=== PATIENT | male | born 1940 | race Two or more races ===

== ENCOUNTER 2016-12-21 13:11 | Inpatient (IN) | payer MEDICAID, OTHER ==
--- NOTE | 2016-12-21 14:07 | EDPHY ---
H & P Time Seen by Provider: 12/21/16 14:04 HPI/ROS: Chief complaint. Chest pain HPI. 76-year-old man with known history coronary artery disease presents with 2 day history of chest pain shortness of breath. Some cough. Vomiting this morning. No fever. His chest discomfort and shortness of breath or worse with exertion. He returned from a visit [place] 1 week ago. No leg swelling or pain. Pain is in the central part of his chest and described as pressure. No radiation. At triage patient's oxygen saturation on room air was 69% ROS Constitutional. no fever/chills, no weakness Eyes. no problems with vision ENT. no sore throat, no nasal drainage Cardiovascular. Chest pain Respiratory. Shortness of breath Abdominal. no abdominal pain, no nausea/vomiting, no diarrhea . no problems urinating MS. no calf pain/swelling, no neck/back pain, no joint pain Skin. no rash Lymph. no swollen glands Neuro. no headache, no dizziness, no difficulty walking or with speech Past Medical/Surgical History: Past medical history coronary artery disease and AK with angioplasty, hypertension, dyslipidemia Social History: , nonsmoker, no alcohol Smoking Status: Never smoked Physical Exam: General Appearance: Alert well-developed male moderate distress vital signs show the patient be afebrile. O2 saturation 69% on room air Eyes: Pupils equal and round no pallor or injection. ENT, Mouth: Mucous membranes are moist. Respiratory: There are no retractions, lungs are clear to auscultation. Cardiovascular: Regular rate and rhythm. Gastrointestinal: Abdomen is soft and nontender, no masses, bowel sounds normal. Neurological: Awake and alert, sensory and motor exams grossly normal. Skin: Warm and dry, no rashes. Musculoskeletal: Neck is supple nontender. Extremities symmetrical, full range of motion. Psychiatric: Patient is oriented X 3, there is no agitation. Constitutional: Initial Vital Signs Temperature (C) 36.5 C 12/21/16 13:48 Heart Rate 93 12/21/16 13:48 Respiratory Rate 16 12/21/16 13:48 Blood Pressure 108/68 12/21/16 13:48 O2 Sat (%) 69 L 12/21/16 13:48 O2 Delivery Mode Oxymask O2 (L/minute) 11 Allergies/Adverse Reactions: No Known Allergies Allergy (Unverified 03/12/16 22:22) Home Medications: Medication Instructions Recorded Allopurinol [Allopurinol 100 MG 100 mg PO DAILY 10/20/15 (*)] Ascard (Acetylsalicylic Acid) 75mg 75 mg PO DAILY 10/20/15 Atenolol [Tenormin 25 mg (*)] 25 mg PO DAILY 10/20/15 Ramipril [Altace 2.5mg (*)] 2.5 mg PO HS 10/20/15 Rosuvastatin Calcium [Crestor] 10 mg PO HS 10/20/15 Nitroglycerin [Nitrostat 0.4 mg 0.4 mg SL Q5M PRN #1 bottle 10/21/15 (RX)] Medical Decision Making - Diagnostics EKG Interpretation: EKG interpreted by me shows normal sinus rhythm with normal interval.. Normal axis. Possible old inferior AK. T-wave inversion leads V3 through V6. No significant ST elevation or depression. There is also inferior T-wave inversion. There is no arrhythmia. The heart rate is 82. The T-wave inversions are new and different from previous EKG from October 2015 Imaging Results: Imaging Impressions Chest X-Ray 12/21/16 14:12 Impression: Interval progression in diffuse interstitial thickening throughout both lungs, progressive interstitial lung disease versus possible superimposed bilateral pulmonary infiltrates.. Chest/Thorax CTA 12/21/16 14:57 Impression: 1. No evidence of pulmonary embolus using CT protocol. 2. Arteriosclerotic calcifications and probably some stents associated with the coronary arteries. 3. Moderate honeycomb pattern once again seen involving the lung parenchyma peripherally as detailed above with increased superimposed groundglass attenuation compatible with early pneumonia or pneumonitis throughout the right lung and involving the left lower lobe. This also can be seen with fluid overload/CHF. Findings discussed with Dean Murray M.D. at 16:07 hour, 12/21/2016. Chest CT reviewed by me and discussed with Dr. Casarez shows possible pneumonia on the right side and left lower lobe. Progression of interstitial fibrosis. No PE Procedures: IV normal saline, monitor, supplemental oxygen Aspirin in the ED nitroglycerin sublingually for continuing chest discomfort blood cultures and septic workup ED Course/Re-evaluation: Phone conversation at 3:[address] Dumont, cardiology, who will see the patient in the ED I have spoken again with Dr. Dumont following his consultation and evaluation of the patient. The patient, the family and I discussed EKG, imaging, lab results. We discussed treatment plan including recommendation for admission. They expressed understanding and agreement I discussed the case with patient's daughter who is a home care assistant at [facility]. I have consulted and discussed the case with Dr. scot Ivan, hospitalist, who agrees to the admission Differential Diagnosis: Certainly the patient is hypoxic and has extensive interstitial lung disease that appears to be progressive. I considered pulmonary embolus. Possibly the patient has pneumonia. He does not have a pulmonary embolus. He has an elevated troponin and EKG changes so I have also considered acute coronary syndrome - Data Points Laboratory Results: Laboratory Results 12/21/16 14:19 12/21/16 14:19 12/21/16 12/21/16 12/21/16 14:19 14:19 14:19 WBC RBC Hgb Hct MCV MCH MCHC RDW Plt Count MPV Neut % (Auto) Lymph % (Auto) [place] % (Auto) Eos % (Auto) Baso % (Auto) Nucleat RBC Rel Count Absolute Neuts (auto) Absolute Lymphs (auto) Absolute Monos (auto) Absolute Eos (auto) Absolute Basos (auto) Absolute Nucleated RBC Immature Gran % Immature Gran # PT 16.5 SEC H SEC (12.0-15.0) INR 1.33 H (0.83-1.16) APTT 26.0 SEC SEC (23.0-38.0) D-Dimer 8.83 ug/mLFEU H ug/mLFEU (0.00-0.50) Sodium 142 mEq/L mEq/L (134-144) Potassium 5.8 mEq/L H mEq/L (3.5-5.2) Chloride 107 mEq/L mEq/L (97-110) Carbon Dioxide 24 mEq/l mEq/l (22-31) Anion Gap 11 mEq/L mEq/L (8-16) BUN 42 mg/dL H mg/dL (7-23) Creatinine 1.6 mg/dL H mg/dL (0.7-1.3) Estimated GFR 42 Glucose 182 mg/dL H mg/dL (70-100) Calcium 9.0 mg/dL mg/dL (8.5-10.4) Total Bilirubin 0.7 mg/dL mg/dL (0.1-1.4) Troponin I 0.227 ng/mL H ng/mL (0-0.034) NT-Pro-B Natriuret Pep 53433 pg/mL H pg/mL (0-450) Lipase 125.0 IU/L IU/L (23-300) 12/21/16 14:19 WBC 11.11 10^3/uL H 10^3/uL (3.80-9.50) RBC 4.97 10^6/uL 10^6/uL (4.40-6.38) Hgb 13.6 g/dL L g/dL (13.7-17.5) Hct 43.3 % % (40.0-51.0) MCV 87.1 fL fL (81.5-99.8) MCH 27.4 pg L pg (27.9-34.1) MCHC 31.4 g/dL L g/dL (32.4-36.7) RDW 14.7 % % (11.5-15.2) Plt Count 246 10^3/uL 10^3/uL (150-400) MPV 13.7 fL H fL (8.7-11.7) Neut % (Auto) 89.1 % H % (39.3-74.2) Lymph % (Auto) 5.1 % L % (15.0-45.0) [place] % (Auto) 5.0 % % (4.5-13.0) Eos % (Auto) 0.1 % L % (0.6-7.6) Baso % (Auto) 0.1 % L % (0.3-1.7) Nucleat RBC Rel Count 0.0 % % (0.0-0.2) Absolute Neuts (auto) 9.89 10^3/uL H 10^3/uL (1.70-6.50) Absolute Lymphs (auto) 0.57 10^3/uL L 10^3/uL (1.00-3.00) Absolute Monos (auto) 0.56 10^3/uL 10^3/uL (0.30-0.80) Absolute Eos (auto) 0.01 10^3/uL L 10^3/uL (0.03-0.40) Absolute Basos (auto) 0.01 10^3/uL L 10^3/uL (0.02-0.10) Absolute Nucleated RBC 0.00 10^3/uL 10^3/uL (0-0.01) Immature Gran % 0.6 % % (0.0-1.1) Immature Gran # 0.07 10^3/uL 10^3/uL (0.00-0.10) PT INR APTT D-Dimer Sodium Potassium Chloride Carbon Dioxide Anion Gap BUN Creatinine Estimated GFR Glucose Calcium Total Bilirubin Troponin I NT-Pro-B Natriuret Pep Lipase Medications Given: Discontinued Medications Aspirin (Aspirin) 324 mg PO EDNOW ONE Stop: 12/21/16 14:25 Last Admin: 12/21/16 14:24 Dose: 324 mg Sodium Chloride (Ns) 1,000 mls @ 0 mls/hr IV ONCE ONE PRN Reason: Wide Open Stop: 12/21/16 14:35 Last Admin: 12/21/16 14:57 Dose: 1,000 mls Departure - Departure Disposition: [facility] Acute Clinical Impression: Acute coronary syndrome Congestive heart failure Qualifiers: Congestive heart failure type: systolic Congestive heart failure chronicity: chronic Qualified Code(s): I50.22 - Chronic systolic (congestive) heart failure Condition: Fair Referrals: Brynn Ahumada MD [Primary Care Provider] - As per Instructions
[2016-12-21] MEDS ORDERED: ASPIRIN 81 MG CHEWABLE TAB ONE (14:12)
[2016-12-21] MEDS ORDERED: ASPIRIN 81 MG CHEWABLE TAB PO ONE (14:24)
[2016-12-21 14:25] LABS: % IMMATURE GRANULYOCYTES 0.6 % (0.0-1.1); ABSOLUTE IMMATURE GRANULOCYTES 0.07 10^3/uL (0.00-0.10); ADD DIFF? NO; ADD MORPH? NO; ADD SCAN? NO; ATYPICAL LYMPHOCYTE FLAG 0 (0-99); FRAGMENT RBC FLAG 20 (0-99); HEMATOCRIT 43.3 % (40.0-51.0); HEMOGLOBIN 13.6 g/dL (13.7-17.5); LEFT SHIFT FLG 20 (0-99); LIPEMIA HEMOLYSIS FLAG 80 (0-99); MEAN CELL HEMOGLOBIN 27.4 pg (27.9-34.1); MEAN CELL HEMOGLOBIN CONCENTR. 31.4 g/dL (32.4-36.7); MEAN CELL VOLUME 87.1 fL (81.5-99.8); MEAN PLATELET VOLUME 13.7 fL (8.7-11.7); PLATELET CLUMPS FLAG 10 (0-99); PLATELET COUNT 246 10^3/uL (150-400); RED BLOOD CELL COUNT 4.97 10^6/uL (4.40-6.38); RED CELL DISTRIBUTION WIDTH 14.7 % (11.5-15.2)
[2016-12-21] MEDS ORDERED: NITROGLYCERIN 0.4 MG BTL SL PRN ×2 (14:25→14:34)
[2016-12-21 14:34] LABS: INR 1.33 (0.83-1.16); PROTIME(PATIENT) 16.5 SEC (12.0-15.0)
[2016-12-21] MEDS ORDERED: NS 1,000 ML IV ONE (14:34)
[2016-12-21 14:45] LABS: ANION GAP 11 mEq/L (8-16); CARBON DIOXIDE 24 mEq/l (22-31); CHLORIDE 107 mEq/L (97-110); CREATININE 1.6 mg/dL (0.7-1.3); GLOMERULAR FILTRATION RATE 42; GLUCOSE 182 mg/dL (70-100); POTASSIUM 5.8 mEq/L (3.5-5.2); SODIUM 142 mEq/L (134-144)
[2016-12-21 14:56] LABS: TROPONIN I 0.227 ng/mL (0-0.034)
[2016-12-21] MEDS ORDERED: IOPAMIDOL (ISOVUE 370) 100 ML BTL IV ONE ×2 (15:01→15:16)
--- NOTE | 2016-12-21 16:12 | CPEKG ---
Heart Rate: 82 RR Interval: 732 P-R Interval: 132 QRSD Interval: 94 QT Interval: 408 QTC Interval: 477 P [place]: 24 QRS [place]: 49 T Wave [place]: -76 EKG Severity - ABNORMAL ECG - EKG Impression: SINUS RHYTHM EKG Impression: PROBABLE LEFT ATRIAL ABNORMALITY EKG Impression: ABNORMAL T, CONSIDER ISCHEMIA, ANT-LAT LEADS EKG Impression: BORDERLINE PROLONGED QT INTERVAL Electronically Signed By: Dean Murray 21-Dec-2016 17:15:39
--- NOTE | 2016-12-21 16:32 | PDCONSULT ---
[employer] Note: CARDIOLOGY CONSULTATION CC: shortness of breath REASON FOR CONSULTATION: Concomitant chest pains HPI: Patient is a 76 y/o male with history of CAD s/p POBA (1994) to the RCA, HLP, HTN, and "interstitial lung disease", who presented to [facility] ER with complaints of shortness of breath and chest tightness. According to the patient, he was doing well three days prior. Symptoms began somewhat acutely, about two days ago. Patient with recent travel from [place] (about one week ago). Chest pains were noted, and localize to the substernal region. No jessica radiation of the discomfort into the shoulder, neck, or jaw has been noted. Emesis was reported today (per ER notes). No PND or orthopnea have been noted. No lower extremity swelling. No fevers or chills have been noted, but the patient does have a slightly productive cough. Compliance with medical therapy has been good. Patient's daughter is a pile driver operator at [employer], and I spoke with her after seeing the patient. Given the travel history and the shortness of breath and a D-dimer of 8.83, the patient had a CT scan to rule out pulmonary emboli. No obvious PE was noted, but extensive lung pathology noted ( infiltrate with scarring and fibrosis). Saturations initially noted were 69% on room air. A non rebreather was started, and shortness of breath improved. ECG with new T wave inversions to the lateral leads (this was not noted on prior ECG from fall). Troponin was elevated to 0.23 with creatinine of 1.6 (pre CT of chest). BNP was also noted to be elevated to 11,600. At present, the patient was comfortable and without complaints of chest pain or pressure. Remainder of the 12 point review of systems was unremarkable. No reports of weight loss. No blood to sputum. (+) cough, (+) dyspnea, (+) chest pain, (+) anorexia PMHx: (1) CAD s/p POBA to RCA in 1994 (2) HTN (3) HLP (4) Interstitial Lung Disease (5) No DM history PSHx: non contributory FHx: non contributory NKDA Medications (1) Crestor (10 mg per day) (2) ASA (3) Ramipril (2.5 mg per day) (4) Atenolol (25 mg per day) (5) Allopurinol (6) Ascard Social Hx: , non smoker, non drinker daughter is pile driver operator at [employer] Vitals: 36.5 93 bpm 16 breaths/min 108/68 mm Hg 69% sats on room air 0/10 chest pain GEN: awake and alert in mild distress given degree of shortness of breath noted SKIN: no rash or edema noted HEENT: NCAT with PERRLA (cataracts). No JVD appreciated LUNGS: Diffusely diminished breath sounds. Crackles to the bases. No wheeze. No overt "dullness" noted COR: RRR without rubs, gallops. No appreciable murmur noted (some of this lost to auscultation given breath sounds GI: soft, NABS EXT: no c/c/e, 2+ DP/PT/RAD Patient was awake, alert, and answered questions appropriately Labs all reviewed: Notables: Trop 0.23 BNP: 30453 Cr: 1.6 K: 5.8 DDimer: 8.83 Mild WBC elevation was noted with leftward shift ECG: normal sinus rhythm with new T wave inversions to the lateral leads. No jessica ST elevation was noted Echocardiogram (at bedside) with low normal LVEF (40-45%) CT of chest without overt evidence of PE. There was diffuse interstitial lung disease noted. Uncertain if there is underlying pneumonia given the severity of the lung disease Stress testing from 2016 with "...large inferolateral infarct with mild borderzone reversibility..." EF at that time was 45%. ASSESSMENT: Blood cultures are pending from the ER Likely start to broad spectrum ABx Serial cardiac enzymes and ECGs Patient appears "dry", and IV hydration is needed (there are multiple labs suggestive of dehydration) We can not (or should not) take the patient urgently to the engineering laboratory technician with (a) Creatine of 1.[address] with contrast and (b) no actively dynamic ECG changes With hydration overnight, we can reassess renal function in the morning to determine if angiogram is feasible study to safely perform in this patient. I spoke with the patient's daughter who was in agreement with these plans. Should there be an overt decompensation and/or dynamic ECG changes noted, we would alter plans and urgently take the patient to the cardiac engineering laboratory technician, but at this point, would obtain further information. Patient was also in agreement with these plans.
[2016-12-21 16:36] LABS: BILIRUBIN,TOTAL 0.7 mg/dL (0.1-1.4)
[2016-12-21] MEDS ORDERED: NS 500 ML IV ONE (17:26)
[2016-12-21] MEDS ORDERED: ONDANSETRON 4 MG/2 ML VIAL IVP PRN (17:26)
[2016-12-21] MEDS ORDERED: ONDANSETRON DISINTEGRATING 4 MG TAB PO PRN (17:26)
[2016-12-21] MEDS: AZITHROMYCIN IV 500 MG in D5W 250 ML IV SCH (19:13)
[2016-12-21 21:28] LABS: COLOR YELLOW; LEUKOCYTE ESTERASE,URINE NEGATIVE (NEGATIVE); NITRITE,URINE NEGATIVE (NEGATIVE)
[2016-12-21] MEDS: guaiFENesin 600 MG TAB.ER PO SCH (21:28)
[2016-12-21] MEDS: HEPARIN 5,000 UNIT/0.5 ML SYR SC SCH (21:28)
[2016-12-21 21:31] LABS: MUCUS TRACE /lpf (NONE-1+)
--- NOTE | 2016-12-21 21:50 | GHP ---
[f rep st] HISTORY AND PHYSICAL DATE OF ADMISSION: 12/21/2016 CHIEF COMPLAINT: Weakness, shortness of breath. HISTORY OF PRESENT ILLNESS: This is a 76-year-old male, with a history of coronary artery disease, interstitial lung disease, hypertension, who presents after a recent trip to [facility] with complaint s of worsening shortness of breath and cough. The patient reports prior to his trip feeling in his normal state of health, taking his daily walks without complication, then post returning from his tr ip, developing severe shortness of breath and weakness. The patient does note a cough productive of blood-tinged sputum. Denies any noticeable fevers or chills. Denies nausea, abdominal pain. Dangelo es chest pain. Denies lower extremity edema, diarrhea or dysuria. PAST MEDICAL HISTORY: 1. Coronary artery disease. 2. Hypertension. 3. Interstitial lung disease, diagnosed on his last hospitalization. Has been seen by a pulmonolog ist in [place] since his discharge without initiation of therapy. 4. Gout. SOCIAL HISTORY: Negative for tobacco, alcohol or illicit drugs. FAMILY HISTORY: Negative for known heart disease. REVIEW OF SYSTEMS: A 10-point review of systems is negative, besides that outlined in the HPI. PHYSICAL EXAMINATION: VITAL SIGNS: Blood pressure is 125/88, heart rate 70, respiratory rate 20, 9 9% on 4 L, 36.5. GENERAL: This is a healthy-appearing, thin, elderly male in no acute distress. H EENT: Notable for dry mucous membranes. Eye exam is negative for any icterus. CARDIAC: Patient i s regular rate and rhythm. A systolic murmur is appreciated. PULMONARY: No rhonchi or wheezing is noted. Fine crackle at bilateral bases. GASTROINTESTINAL: Positive bowel sounds. ABDOMEN: Soft and nontender. MUSCULOSKELETAL: Negative for any lower extremity edema. SKIN: Exam is negative for any rashes. NEUROLOGIC: He is alert and oriented x3. PSYCHIATRIC: He is pleasant and coopera tive on interview and examination. LABORATORY DATA: CT of the chest, which I personally reviewed and interpreted, shows interstitial l paige disease, honeycombing pattern. There appears to be increased attenuation at the right lung and left lower lobe suspicious for pneumonia. EKG, which I personally reviewed and interpreted, shows sinus rhythm, normal axis, normal intervals, with T-wave inversions V3 through V5, which are new from previous. White count is 11, hematocrit 43. D-dimer is 8.8. Creatinine 1.6, baseline closer to 1.2. Troponi n 0.227. BNP 11,600. ASSESSMENT AND PLAN: This is a 76-year-old male presenting with shortness of breath. 1. Acute hypoxic respiratory failure concerning for multiple etiologies, including progressive inte rstitial lung disease and underlying pneumonia, and possible cardiac dysfunction. Will initiate arlene atment for pneumonia at this time. Carefully fluid resuscitate in preparation for cardiac catheteri zation. Bedside echocardiography did not show acute wall motion abnormalities, per Cardiology, or c oncerning changes in his ejection fraction, which was in the high 40s last visualized. 2. Interstitial lung disease. It does appear that this has progressed since his last imaging study at [facility]. I have asked Dr. Odell from Pulmonary to consult in the morning to help assist with any recommendations related to treatment of his ILD or the suspected underlying pne umonia. 3. Indeterminate troponin. With patient's known history of coronary artery disease and concurrent T-wave inversion, certainly concerning for evolving ischemia. We will recheck troponins this evenin g. We will make the patient n.p.o. for a possible cardiac catheterization in the morning if his oskar al function improves. Cardiology has evaluated the patient, and we will follow along closely. It i s also possible that the patient's troponin is mildly elevated in the setting of acute kidney dysfun ction. We will follow with hydration. 4. Acute kidney injury, secondary to volume depletion. Patient has had very limited oral intake in the preceding days, and appears dry on examination. We will fluid resuscitate this evening, and re check his renal function in the morning. We will hold his ramipril, in the setting of acute kidney injury and concurrent contrast administration. 5. Suspected acute community-acquired pneumonia. We will initiate azithromycin and ceftriaxone. B lood cultures have been obtained from the emergency department. We will follow his microbiology. 6. Prophylaxis with heparin subcutaneous. 7. Diet: Cardiac, then n.p.o. after midnight for possible catheterization. 8. Disposition. I am expecting greater than 2 midnights, as patient is presenting with multiple co mplaints, including hypoxia, kidney injury, and abnormal troponins. I have discussed the case with Dr. Dumont, as well as the emergency room. Patient will be triaged to the PCU. /[id number]/MODL
[2016-12-22] MEDS: NS 1,000 ML IV SCH ×2 (01:47→09:07)
[2016-12-22 04:04] LABS: % IMMATURE GRANULYOCYTES 0.2 % (0.0-1.1); ABSOLUTE IMMATURE GRANULOCYTES 0.02 10^3/uL (0.00-0.10); ADD DIFF? NO; ADD MORPH? NO; ADD SCAN? NO; ATYPICAL LYMPHOCYTE FLAG 0 (0-99); FRAGMENT RBC FLAG 20 (0-99); HEMATOCRIT 36.2 % (40.0-51.0); HEMOGLOBIN 11.2 g/dL (13.7-17.5); LEFT SHIFT FLG 10 (0-99); LIPEMIA HEMOLYSIS FLAG 80 (0-99); MEAN CELL HEMOGLOBIN 27.4 pg (27.9-34.1); MEAN CELL HEMOGLOBIN CONCENTR. 30.9 g/dL (32.4-36.7); MEAN CELL VOLUME 88.5 fL (81.5-99.8); MEAN PLATELET VOLUME 14.6 fL (8.7-11.7); PLATELET CLUMPS FLAG 30 (0-99); PLATELET COUNT 193 10^3/uL (150-400); RED BLOOD CELL COUNT 4.09 10^6/uL (4.40-6.38); RED CELL DISTRIBUTION WIDTH 14.6 % (11.5-15.2)
[2016-12-22 04:33] LABS: ANION GAP 8 mEq/L (8-16); CALCIUM 8.1 mg/dL (8.5-10.4); CARBON DIOXIDE 24 mEq/l (22-31); CHLORIDE 112 mEq/L (97-110); CREATININE 1.4 mg/dL (0.7-1.3); GLOMERULAR FILTRATION RATE 49; GLUCOSE 68 mg/dL (70-100); POTASSIUM 6.1 mEq/L (3.5-5.2); SODIUM 144 mEq/L (134-144)
[2016-12-22 04:39] LABS: TROPONIN I 0.197 ng/mL (0-0.034)
[2016-12-22] MEDS: HEPARIN 5,000 UNIT/0.5 ML SYR SC SCH (07:35)
[2016-12-22] MEDS ORDERED: SODIUM POLY SULF 15 GM/60 ML BOTTLE PO ONE (08:24)
[2016-12-22] MEDS ORDERED: RAMIPRIL 2.5 MG CAP PO SCH (09:00)
[2016-12-22] MEDS: ATENOLOL 25 MG TAB PO SCH (09:06)
[2016-12-22] MEDS: guaiFENesin 600 MG TAB.ER PO SCH ×2 (09:06→20:38)
[2016-12-22] MEDS: ALLOPURINOL 100 MG TAB PO SCH (09:06)
[2016-12-22] MEDS: DONEPEZIL HCL 5 MG TAB PO SCH (09:06)
[2016-12-22] MEDS: PRAVASTATIN SODIUM 10 MG TAB PO SCH (09:06)
[2016-12-22] MEDS: AZITHROMYCIN IV 500 MG in D5W 250 ML IV SCH (09:07)
--- NOTE | 2016-12-22 14:13 | HOSPPROG ---
Hospitalist Progress Note Assessment/Plan: 76 yo M with PMH of CAD, HTN and recent dx of ILD presenting with acute hypoxic respiratory failure # acute hypoxic respiratory failure: presenting at 64% on RA initially and currently maintaining o2 sats in low to mid 90s on low flow o2. CTA personally reviewed and interpreted, no e/o PE, does have diffuse ground glass opacities c/ w ILD vs pulmonary edema vs pna/pneumonitis. Currently treating with abx for CAP , bronchodilators, holding off on lasix given hasmukh and not clearly volume overloaded but will get echo for further eval. # ILD: as above, new dx from October. Pulmonary has been consulted and recommendations are currently pending. Apparently was seen by pulm since last dc. # CAP: suspect component of pna contributing to problem 1, started on ctx/azith , sputum cx pending, blood cx with ngtd # elevated trop: with TWI noted on personal review of ecg and recent stress test showing large inferolateral infarct. Difficult to tell if patient having chest pain per se, has diffuse pain per his report. Cards following, no plan for cath currently given hasmukh. Will get echo as above. # hasmukh: presumably pre renal with some improvement overnight, down to 1.4 from 1.6. Will check urine na/creatinine as well as bladder scan to eval for possible retention. # CAD: prior stents, cards following as above, difficult to assess for chest pain currently. Med mgmt for now, likely cath in near future # dispo: IP status, will need > 48 hours stay for eval/mgmt of above given high risk presenting issues Patient new to my care. Old records reviewed and summarized as above. Care plan reviewed with son present at bedside. Subjective: no significant overnight events, patient currently feeling about the same, very sob with exertion, some diffuse pain, minimal cough Objective: Vital Signs Temp Pulse Resp BP Pulse Ox 36.5 C 87 16 122/73 H 99 12/22/16 11:11 12/22/16 11:11 12/22/16 11:11 12/22/16 11:11 12/22/16 11:11 Laboratory Results 12/22/16 03:20 12/22/16 03:20 12/21/16 12/22/16 12/23/16 05:59 05:59 05:59 Intake Total 2375 Output Total 325 Balance 2050 PT 16.5 SEC (12.0-15.0) H 12/21/16 14:19 INR 1.33 (0.83-1.16) H 12/21/16 14:19 awake alert, chronically ill appearing anicteric op clear rrr distant no mrg dec bs throughout dry cough increased wob soft nt nd no cce warm dry well perfused oriented appropriate - Time Spent With Patient Time Spent with Patient: greater than 35 minutes Time Spent with Patient: Greater than 35 minutes spent on this patients care, greater than 50% of time spent counseling, educating, and coordinating care regarding the above mentioned plan. ICD10 Worksheet Patient Problems: Problems Problem Status Onset Acute coronary syndrome Acute Congestive heart failure Acute Chest pain Acute
[2016-12-22 15:19] LABS: % IMMATURE GRANULYOCYTES 0.2 % (0.0-1.1); ABSOLUTE IMMATURE GRANULOCYTES 0.02 10^3/uL (0.00-0.10); ADD DIFF? NO; ADD MORPH? NO; ADD SCAN? NO; ATYPICAL LYMPHOCYTE FLAG 0 (0-99); FRAGMENT RBC FLAG 20 (0-99); HEMATOCRIT 37.7 % (40.0-51.0); HEMOGLOBIN 11.6 g/dL (13.7-17.5); LEFT SHIFT FLG 40 (0-99); LIPEMIA HEMOLYSIS FLAG 80 (0-99); MEAN CELL HEMOGLOBIN 26.9 pg (27.9-34.1); MEAN CELL HEMOGLOBIN CONCENTR. 30.8 g/dL (32.4-36.7); MEAN CELL VOLUME 87.3 fL (81.5-99.8); MEAN PLATELET VOLUME 13.5 fL (8.7-11.7); PLATELET CLUMPS FLAG 10 (0-99); PLATELET COUNT 224 10^3/uL (150-400); RED BLOOD CELL COUNT 4.32 10^6/uL (4.40-6.38); RED CELL DISTRIBUTION WIDTH 14.6 % (11.5-15.2)
[2016-12-22] MEDS: ACETYLCYSTEINE 10% 30 ML VIAL IH SCH ×2 (16:40→21:37)
[2016-12-22] MEDS: IPRATROPIUM/ALBUTEROL 3 ML DEYVIAL IH SCH ×2 (16:40→21:37)
--- NOTE | 2016-12-22 16:43 | PDCARPN ---
Cardiology Progress Note Chief Complaint: Ongoing dyspnea with diarrhea (secondary to kayexalate) Assessment/Plan: Assessment: 12-22-16 No events overnight, but renal function did reveal some signs of improvement. Ongoing hyperkalemia has been noted, and given this finding, the patient was given Kayexalate today. Shortness of breath continues to be noted. Troponins peaked at 0.23 and have dropped. Mild chest discomfort continues to be noted. Echocardiogram without jessica progressive features noted (in comparison to prior) . 12-21-16 Patient is a 76 y/o male with history of CAD s/p POBA (1994) to the RCA, HLP, HTN, and "interstitial lung disease", who presented to [facility] ER with complaints of shortness of breath and chest tightness. According to the patient, he was doing well three days prior. Symptoms began somewhat acutely, about two days ago. Patient with recent travel from [place] (about one week ago). Chest pains were noted, and localize to the substernal region. No jessica radiation of the discomfort into the shoulder, neck, or jaw has been noted. Emesis was reported today (per ER notes). No PND or orthopnea have been noted. No lower extremity swelling. No fevers or chills have been noted, but the patient does have a slightly productive cough. Compliance with medical therapy has been good. Patient's daughter is a cdl truck driver at [facility] [employer], and I spoke with her after seeing the patient. Given the travel history and the shortness of breath and a D-dimer of 8.83, the patient had a CT scan to rule out pulmonary emboli. No obvious PE was noted, but extensive lung pathology noted ( infiltrate with scarring and fibrosis). Saturations initially noted were 69% on room air. A non rebreather was started, and shortness of breath improved. ECG with new T wave inversions to the lateral leads (this was not noted on prior ECG from fall). Troponin was elevated to 0.23 with creatinine of 1.6 (pre CT of chest). BNP was also noted to be elevated to 11,600. At present, the patient was comfortable and without complaints of chest pain or pressure Plan: (1) Would refrain from further invasive cardiac procedures at present (2) Reassessment of potassium is pending (3) AM reassessment of BMP to document continued improvement in renal function (4) Repeat ECG was ordered (5) Await input from Pulm/Crit care Subjective: Shortness of breath Objective: Vital Signs (8 Hrs) Temp Pulse Resp BP Pulse Ox 12/22/16 15:25 36.5 C 65 18 110/63 97 12/22/16 11:11 36.5 C 87 16 122/73 H 99 Intake/Output (24 Hrs) 12/21/16 12/22/16 12/23/16 05:59 05:59 05:59 Intake Total 2375 1805 Output Total 325 Balance 2050 1805 Intake: IV Intake (ml) 1375 IV Infused (ml) 1000 1805 Azithromycin IV 500 mg In 255 D5w 250 ml @ 255 mls/hr IV DAILY RAUDEL Rx#: [id number] Ns 1,000 ml @ 125 mls/hr 1500 IV CONT RAUDEL Rx#: [id number] cefTRIAXone 1 GM/DEXTROSE 50 50 ml @ 100 mls/hr IV DAILY RAUDEL Rx#:[id number] Output: Urine (ml) 325 Bedside Commode 325 Other: Weight 55.928 kg Number of Voids Bedside Commode 1 Toilet 1 Number of Stools Bedside Commode 1 Result Diagrams: 12/22/16 15:05 12/22/16 03:20 Cardiac Labs: Cardiac Lab Results (72 Hrs) 12/22/16 12/21/16 03:20 22:14 Troponin I 0.197 H 0.292 H EKG: sinus rhythm with new T wave inversions Telemetry: sinus rhythm - Physical Exam Constitutional: WDWN, cachectic Eyes: PERRL, EOMI Ears, Nose, Mouth, Throat: moist mucous membranes Cardiovascular: regular rate and rhythm, no gallops, systolic murmur, No jugular vein distention Peripheral Pulses: 2+: dorsalis-pedis (R), dorsalis-pedis (L) Respiratory: reduced air movement, expiratory wheeze, inspiratory crackles Gastrointestinal: normoactive bowel sounds Skin: no rashes, no edema Musculoskeletal: no muscular tenderness Neurologic: AAOx3, CN II-XII grossly intact Psychiatric: cooperative, interactive, following commands ICD10 Worksheet Patient Problems: Problems Problem Status Onset Acute coronary syndrome Acute Congestive heart failure Acute Chest pain Acute
--- NOTE | 2016-12-22 17:14 | ECHO ---
[id number] + + [address] : : [place] [address] : : [phone] + + Adult Echocardiographic Report + ---+ :Name: NAKUL MATIASRobinson Date: 12/21/2016 04:53 PM : : Hospital Admission Number: [id number] : :: 1940 Gender: Male Height: 65 in : :Age: 76 yrs Race: [facility] Weight: 123 l b : :Reason For Study: Eval LV Fx : : BSA: 1.6 mete rs2: :History: SOB, CHF : + ---+ MMode/2D Measurements \T\ Calculations IVSd: 0.80 cm LVIDd: 4.8 cm FS: 17.3 % Ao root diam: LVPWd: 0.96 cm LVIDs: 4.0 cm EDV(Teich): 3.2 cm 110.2 ml ACS: 1.9 cm ESV(Teich): 70.4 ml EF(Teich): 36.1 % LVOT diam: 1.8 cm LVLd ap4: 7.1 cm SV(MOD-sp4): LVOT area: EDV(MOD-sp4): 37.0 ml 2.5 cm2 91.0 ml LVLs ap4: 6.5 cm ESV(MOD-sp4): 54.0 ml EF(MOD-sp4): 40.7 % Normal Measurement Values: + + :LVIDd (3.5-5.7cm) IVSd (0.6-1.1cm) LVPWd (0.6-1.1cm) Aortic Root (2.0-3.7cm)Left Atrium (1.5-4.0cm): :LV Vol(d) (76-115ml) LV Vol(s) (29-48ml) Ejec Fraction (50-65%)PV Stanislav (0.6- 1.2m/s) TV Stanislav (0.4-1.0m/s) : :MV E Stanislav (0.8-1.0m/s)MV A Stanislav (0.3-1.0m/s)LVOT Stanislav (0.7-1.2m/s) Asc Ao Stanislav ( 0.9-1.8m/s) : + + Doppler Measurements \T\ Calculations MV E max stanislav: Ao V2 max: AI max stanislav: LV V1 max: 46.9 cm/sec 118.0 cm/sec 347.0 cm/sec 56.3 cm/sec MV A max stanislav: Ao max PG: AI max P.2 mmHgLV V1 max P.6 cm/sec 5.6 mmHg AI dec slope: 1.3 mmHg MV E/A: 0.71 JERROD(V,D): 1.2 cm2 113.0 cm/sec2 LV V1 mean PG: AI P1/2t: 899.4 msec1.0 mmHg LV V1 mean: 42.0 cm/sec LV V1 VTI: 12.9 cm SV(LVOT): 32.8 ml TR max stanislav: 368.0 cm/sec TR max P.2 mmHg RAP systole: 5.0 mmHg RVSP(TR): 59.2 mmHg Left Ventricle The left ventricle is normal in size. There is normal left ventricular wall thickness. Ejection Fraction = 40-45%. There is Doppler evidence for diastolic dysfunction. There is moderate global hypokinesis of the left ventricle. Right Ventricle The right ventricle is normal in size and function. Atria The left atrial size is normal. Right atrial size is normal. Mitral Valve The mitral valve is normal. There is trace mitral regurgitation. Tricuspid Valve There is trace to mild tricuspid regurgitation. Right ventricular systolic pressure is 59mmHg. There is Doppler evidence for moderate to severe pulmonary hypertension. Aortic Valve The aortic valve is trileaflet. There is no aortic stenosis. Moderate aortic regurgitation. There is an eccentric jet of aortic insufficiency directed against the anterior mitral leaflet. Pulmonic Valve The pulmonic valve is not well visualized. There is no pulmonic valvular regurgitation. Great Vessels The aortic root is normal size. Pericardium/Pleural There is no pericardial effusion. Conclusion A complete two-dimensional transthoracic echocardiogram was performed (2D, M-mode, Doppler and color flow Doppler). (1) Left ventricular systolic ejection fraction was mild to moderately reduced (40-45%) - moderate global hypokinesis (2) No left ventricular hypertrophy (3) Diastolic dysfunction was present (4) Normal right ventricular size and systolic function (5) Grossly normal atrial dimensions (6) Physiologic mitral regurgitation (7) Trileaflet aortic valve with moderate insufficiency without sclerosis or stenosis (8) Mild tricuspid regurgitation - RVSP was estimate to be 55-60 mm Hg (9) Poor visualization of the pulmonic valve (10) No comparison echocardiograms available Final Reading Physician: Nikunj Reid signed on 12/22/2016 05:12 PM Ordering Physician: Hal Dumont Performed By: Robert Anaya RDCS
[2016-12-22 17:17] LABS: ANION GAP 9 mEq/L (8-16); CALCIUM 8.1 mg/dL (8.5-10.4); CARBON DIOXIDE 26 mEq/l (22-31); CHLORIDE 111 mEq/L (97-110); CREATININE 1.1 mg/dL (0.7-1.3); GLOMERULAR FILTRATION RATE > 60; GLUCOSE 60 mg/dL (70-100); POTASSIUM 4.3 mEq/L (3.5-5.2); SODIUM 146 mEq/L (134-144)
[2016-12-22] MEDS: ACETAMINOPHEN 325 MG TAB PO PRN (18:09)
--- NOTE | 2016-12-22 22:28 | GCON ---
[f rep st] CONSULTATION PULMONARY CONSULT HISTORY OF PRESENT ILLNESS: This patient is a 76-year-old male with a history of interstitial lung disease that was diagnosed about a year ago. He has been followed at the [facility] by and was thought to have an unclassified interstitial robby ng disease (for example not classic UIP) and workup has been underway at [place]. He has not had any lung biopsies either by bronchoscopy or VATS and has not been treated for this interstitial bright g disease per se. Pulmonary function tests were done suggesting restrictive process with a low DLCO , but the patient had been relatively stable to date. He was feeling well before a recent trip to [facility] where he travels back and forth on a regular basis, and he was feeling poorly, but in a very vague way while in [place] and delayed his return to the [place]. After returning, however, he said he felt relatively well up until a couple of days prior to admission. He did describe to [facility] some abdominal and/or chest pain though that part of the history has been waxing and waning. In a ny case, he had increasing shortness of breath and came to the emergency department because of that where he was found to have an oxygen saturation of 70% on room air. He has not previously been on o xygen though he says that his breathing has been stable up until now. He has had a productive cough , but it is not clear if this has changed recently. He says he produces yellow to green sputum and more recently has had small amounts of blood, and on the day of admission had a larger amount of blo od though no clots and no jessica hemoptysis. In any case, he was found to have not only hypoxemia, b ut a white blood cell count of 11 and an EKG with only T-wave inversions and a slight bump in his tr oponin to 0.22, but a BNP of 11,000. A repeat CT scan was performed compared to his previous films that show a substantial increase in ground-glass and consolidative changes particularly in the lower lobes on top of a honeycomb pattern that had been present in the past. He was treated with ceftria xone and azithromycin, and was also given IV fluids because of a creatinine of 1.6 with an elevated potassium. REVIEW OF SYSTEMS: He states that he felt that his chronic lung disease had been quite stable, and there had only been recent changes that made him more short of breath and present to the hospital. He does have a coronary artery disease history and also has hyperlipidemia and hypertension, but was unable to proceed to the catheterization lab due to his increased creatinine. He has no prior hist ory of renal disease, as well. PAST MEDICAL HISTORY: Includes: 1. Coronary artery disease as described above. 2. Hypertension. 3. Interstitial lung disease as described above. 4. Gout. SOCIAL HISTORY: He is a lifelong nonsmoker, no alcohol or IV drug disease. FAMILY HISTORY: Lacks coronary disease, as well as interstitial lung disease. MEDICATIONS: Currently include Mucomyst, Proventil, DuoNeb, allopurinol, atenolol, azithromycin, ce ftriaxone, Aricept, Mucinex, Zofran, Pravachol, and normal saline ran over night with about a liter of fluid. PHYSICAL EXAMINATION: VITAL SIGNS: He has been afebrile. His blood pressure 122/73, heart rate 87 , respirations 16, oxygen saturation 99% on 4 L nasal cannula. GENERAL: He was small frame and thi n, but not cachectic and awake and alert, oriented x3, able to speak in full sentences without using accessory muscles for breathing. HEENT: Pupils are equally round, react to light, nonicteric, and noninjected. Mucous membranes are moist without erythema or exudate. NECK: Supple without adenop athy, and I did not appreciate jugular venous distention. LUNGS: Breath sounds were coarse through out bilaterally particularly in the lower lobes. There was no wheezing. HEART: Regular rate and r hythm. I do not detect an obvious murmur. ABDOMEN: Soft, nontender, nondistended without hepatosp lenomegaly. EXTREMITIES: No clubbing, cyanosis, or edema. NEUROLOGIC: Nonfocal including cranial nerves and deep tendon reflexes. SKIN: Warm and dry without evidence of rash. LABORATORY AND X-RAY DATA: Includes the CT scan as reported above. His white count was 11 when he arrived, it is 10.9 today, hematocrit 36, platelets of 193, sodium is 144, potassium is 6.1, chlorid e 112, bicarb 24, BUN 41, creatinine 1.4, which is down from 1.6 yesterday, glucose of 68. Troponin was 0.227, then 0.292, and then 0.197. BNP was 11,600. Lipase was 125. Urinalysis was unremarkab le. EKG is as described above. Apparently, a bedside echo was done yesterday showing an ejection f raction of 40% to 45%, but a formal echo has not yet been done. ASSESSMENT AND PLAN: 1. Increasing hypoxemia with a clearly abnormal CT scan that is worse than last October. The differe ntial I think is between a worsening interstitial lung disease or an acute exacerbation of interstit ial lung disease, a superimposed infection such as pneumonia and/or a volume overload particularly g iven the markedly elevated BNP. I think the bulk of evidence supports an acute process such as pneu monia, which also may be complicated by a fluid overload state given his left ventricular ejection f raction of only 40% to 45%. Complicating the situation of course is an acute kidney injury. The ce ftriaxone and azithromycin I think are appropriate at this time. I think that I would not give him more fluids and would consider diuretics despite the labs suggesting intravascular volume depletion based mostly on the BNP, recognizing of course that a BNP of that level may be influenced by his kid jaspreet dysfunction. What I do not believe is happening is that this is a progression of his underlying interstitial lung disease. Even though this has been poorly characterized, it is uncommon for inte rstitial lung disease to have a sudden change to this magnitude. An acute coronary syndrome has not been completely ruled out, but I agree with holding off on cardiac catheterization given his renal insufficiency. Although it is difficult to rule out an acute exacerbation of interstitial lung dise ase, he seems to be stable enough and I think that the risk of putting him on steroids at this time outweighs the benefits given his advanced age at this time. Should he fail to improve, then we migh t consider empiric steroids. I think a lung biopsy at this acute phase is also a bit risky, though we could consider that in the future. 2. Hyperkalemia. I would like to double check to make sure this is not hemolysis that is causing t his problem, but I think at that level of hyperkalemia discharge would not be prudent and that may g et better with low-dose Lasix. /[id number]/MODL
[2016-12-23 05:09] LABS: % IMMATURE GRANULYOCYTES 0.2 % (0.0-1.1); ABSOLUTE IMMATURE GRANULOCYTES 0.02 10^3/uL (0.00-0.10); ADD DIFF? NO; ADD MORPH? NO; ADD SCAN? NO; ATYPICAL LYMPHOCYTE FLAG 10 (0-99); FRAGMENT RBC FLAG 20 (0-99); HEMOGLOBIN 10.6 g/dL (13.7-17.5); LEFT SHIFT FLG 10 (0-99); LIPEMIA HEMOLYSIS FLAG 80 (0-99); MEAN CELL HEMOGLOBIN CONCENTR. 30.3 g/dL (32.4-36.7); MEAN CELL VOLUME 89.3 fL (81.5-99.8); MEAN PLATELET VOLUME 14.5 fL (8.7-11.7); PLATELET CLUMPS FLAG 0 (0-99); PLATELET COUNT 192 10^3/uL (150-400); RED BLOOD CELL COUNT 3.92 10^6/uL (4.40-6.38); RED CELL DISTRIBUTION WIDTH 14.9 % (11.5-15.2)
[2016-12-23 05:32] LABS: ANION GAP 10 mEq/L (8-16); CALCIUM 8.1 mg/dL (8.5-10.4); CARBON DIOXIDE 24 mEq/l (22-31); CHLORIDE 111 mEq/L (97-110); GLOMERULAR FILTRATION RATE > 60; GLUCOSE 74 mg/dL (70-100); POTASSIUM 4.5 mEq/L (3.5-5.2); SODIUM 145 mEq/L (134-144)
[2016-12-23] MEDS: ACETYLCYSTEINE 10% 30 ML VIAL IH SCH ×4 (06:17→21:48)
[2016-12-23] MEDS: IPRATROPIUM/ALBUTEROL 3 ML DEYVIAL IH SCH ×4 (06:17→21:47)
[2016-12-23] MEDS: ALBUTEROL 3 ML DEYVIAL IH PRN (08:17)
[2016-12-23] MEDS: PRAVASTATIN SODIUM 10 MG TAB PO SCH (08:46)
[2016-12-23] MEDS: ATENOLOL 25 MG TAB PO SCH (08:47)
[2016-12-23] MEDS: guaiFENesin 600 MG TAB.ER PO SCH ×2 (08:47→21:41)
[2016-12-23] MEDS: DONEPEZIL HCL 5 MG TAB PO SCH (08:48)
[2016-12-23] MEDS: ALLOPURINOL 100 MG TAB PO SCH (08:48)
[2016-12-23] MEDS: AZITHROMYCIN IV 500 MG in D5W 250 ML IV SCH (08:50)
[2016-12-23] MEDS ORDERED: PNEUMOC 13-VAL CONJ-DIP CRM/PF 0.5 ML SYR IM ONE (12:17)
--- NOTE | 2016-12-23 15:40 | PDCARPN ---
Cardiology Progress Note Chief Complaint: Patient voiced no complaints, but nursing reported that the patient had numerous "fits" of coughing through the day Assessment/Plan: Assessment: 12-23-16 Patient to good sleep overnight. Ongoing downward trend of the troponins has been noted. Further decrease in the BNP has also been noted. No complaints of chest pains or pressure. No PND or orthopnea. Normalization of the potassium has also been noted. Chief complaint continues to be shortness of breath with semi productive cough. I spoke with both the son and the daughter of the patient last night. Plans as of last night were not to pursue angiography, and to allow resolution of the suspected community acquired pneumonia. 12-22-16 No events overnight, but renal function did reveal some signs of improvement. Ongoing hyperkalemia has been noted, and given this finding, the patient was given Kayexalate today. Shortness of breath continues to be noted. Troponins peaked at 0.23 and have dropped. Mild chest discomfort continues to be noted. Echocardiogram without jessica progressive features noted (in comparison to prior) . 12-21-16 Patient is a 76 y/o male with history of CAD s/p POBA (1994) to the RCA, HLP, HTN, and "interstitial lung disease", who presented to [facility] ER with complaints of shortness of breath and chest tightness. According to the patient, he was doing well three days prior. Symptoms began somewhat acutely, about two days ago. Patient with recent travel from [place] (about one week ago). Chest pains were noted, and localize to the substernal region. No jessica radiation of the discomfort into the shoulder, neck, or jaw has been noted. Emesis was reported today (per ER notes). No PND or orthopnea have been noted. No lower extremity swelling. No fevers or chills have been noted, but the patient does have a slightly productive cough. Compliance with medical therapy has been good. Patient's daughter is a electrolysis engineer at [employer], and I spoke with her after seeing the patient. Given the travel history and the shortness of breath and a D-dimer of 8.83, the patient had a CT scan to rule out pulmonary emboli. No obvious PE was noted, but extensive lung pathology noted ( infiltrate with scarring and fibrosis). Saturations initially noted were 69% on room air. A non rebreather was started, and shortness of breath improved. ECG with new T wave inversions to the lateral leads (this was not noted on prior ECG from fall). Troponin was elevated to 0.23 with creatinine of 1.6 (pre CT of chest). BNP was also noted to be elevated to 11,600. At present, the patient was comfortable and without complaints of chest pain or pressure Plan: (1) Would continue with antibiotic therapy for suspected pneumonia (2) Consider more frequent "breathing treatments" to facilitate clearance (3) Cardiology wanting to refrain from invasive cardiovascular testing at this point - would consider outpatient stress testing with further improvement in pulmonary function/symptoms Subjective: No voiced cardiovascular complaints Reviewed/Discussed With: family, hospitalist, multidisciplinary team Objective: Vital Signs (8 Hrs) Temp Pulse Resp BP Pulse Ox 12/23/16 11:50 36.4 C 75 20 121/82 H 95 12/23/16 08:10 84 20 98 12/23/16 08:07 36.4 C 87 28 H 117/75 98 Intake/Output (24 Hrs) 12/22/16 12/23/16 12/24/16 05:59 05:59 05:59 Intake Total 2375 2850 305 Output Total 325 675 Balance 2050 2175 305 Intake: Oral (ml) 795 IV Intake (ml) 1375 250 IV Infused (ml) 1000 1805 305 Azithromycin IV 500 mg In 255 255 D5w 250 ml @ 255 mls/hr IV DAILY RAUDEL Rx#: [id number] Ns 1,000 ml @ 125 mls/hr 1500 IV CONT RAUDEL Rx#: [id number] cefTRIAXone 1 GM/DEXTROSE 50 50 50 ml @ 100 mls/hr IV DAILY RAUDEL Rx#:[id number] Output: Urine (ml) 325 675 Bedside Commode 325 675 Other: Weight 55.928 kg Output Comment Bedside Commode post kaexylate this am Number of Voids Bedside Commode 1 1 2 Toilet 1 Number of Stools Bedside Commode 1 1 1 Result Diagrams: 12/23/16 03:50 12/23/16 03:50 Cardiac Labs: Cardiac Lab Results (72 Hrs) 12/22/16 12/21/16 03:20 22:14 Troponin I 0.197 H 0.292 H Telemetry: normal sinus rhythm - Physical Exam Constitutional: WDWN, cachectic Eyes: PERRL, EOMI Ears, Nose, Mouth, Throat: moist mucous membranes Cardiovascular: regular rate and rhythm, systolic murmur, No jugular vein distention Peripheral Pulses: 2+: dorsalis-pedis (R), dorsalis-pedis (L) Respiratory: reduced air movement, expiratory wheeze, inspiratory crackles Gastrointestinal: normoactive bowel sounds Skin: no rashes, no edema Musculoskeletal: no muscular tenderness Neurologic: AAOx3, CN II-XII grossly intact Psychiatric: cooperative, interactive, following commands ICD10 Worksheet Patient Problems: Problems Problem Status Onset Acute coronary syndrome Acute Congestive heart failure Acute Chest pain Acute
--- NOTE | 2016-12-23 16:31 | HOSPPROG ---
Hospitalist Progress Note Assessment/Plan: 76 yo M with PMH of CAD, HTN and recent dx of ILD presenting with acute hypoxic respiratory failure # acute hypoxic respiratory failure: presenting at 64% on RA initially and currently maintaining o2 sats in low to mid 90s on low flow o2. CTA personally reviewed and interpreted, no e/o PE, does have diffuse ground glass opacities c/ w ILD vs pulmonary edema vs pna/pneumonitis. Currently treating with abx for CAP , bronchodilators, if renal function stable will try lasix in am. # ILD: as above, new dx from October. Pulmonary has been consulted and does not think that steroids are needed at this time, they do not think this is related to progression of disease. He has established care with pulm previously # CAP: suspect component of pna contributing to problem 1, started on ctx/azith , sputum cx pending, blood cx with ngtd # elevated trop: with TWI noted on personal review of ecg and recent stress test showing large inferolateral infarct. Difficult to tell if patient having chest pain per se, has diffuse pain per his report. Cards following, no plan for cath currently given hasmukh. Will get echo as above. # hasmukh: presumably pre renal with some improvement overnight, down to 1.4 from 1.6. Will check urine na/creatinine as well as bladder scan to eval for possible retention. # CAD: prior stents, cards following as above, difficult to assess for chest pain currently. Med mgmt for now, likely cath in near future # dispo: IP status, will need > 48 hours stay for eval/mgmt of above given high risk presenting issues Subjective: no significant overnight events, feeling a bit better, but still somnolent and sob with minimal exertion Objective: Vital Signs Temp Pulse Resp BP Pulse Ox 36.6 C 80 20 141/81 H 98 12/23/16 16:26 12/23/16 16:26 12/23/16 16:26 12/23/16 16:26 12/23/16 16:26 Laboratory Results 12/23/16 03:50 12/23/16 03:50 12/22/16 12/23/16 12/24/16 05:59 05:59 05:59 Intake Total 2375 2850 305 Output Total 325 675 Balance 2050 2175 305 PT 16.5 SEC (12.0-15.0) H 12/21/16 14:19 INR 1.33 (0.83-1.16) H 12/21/16 14:19 awake alert, chronically ill appearing anicteric op clear rrr distant no mrg dec bs throughout dry cough increased wob soft nt nd no cce warm dry well perfused oriented appropriate ICD10 Worksheet Patient Problems: Problems Problem Status Onset Acute coronary syndrome Acute Congestive heart failure Acute Chest pain Acute
[2016-12-24] MEDS: ACETAMINOPHEN 325 MG TAB PO PRN (01:20)
[2016-12-24] MEDS: ALBUTEROL 3 ML DEYVIAL IH PRN (01:35)
[2016-12-24] MEDS: IPRATROPIUM/ALBUTEROL 3 ML DEYVIAL IH SCH ×4 (05:57→20:48)
[2016-12-24] MEDS: ACETYLCYSTEINE 10% 30 ML VIAL IH SCH ×4 (05:58→20:49)
[2016-12-24] MEDS: DONEPEZIL HCL 5 MG TAB PO SCH (08:56)
[2016-12-24] MEDS: ALLOPURINOL 100 MG TAB PO SCH (08:56)
[2016-12-24] MEDS: guaiFENesin 600 MG TAB.ER PO SCH ×2 (08:56→21:47)
[2016-12-24] MEDS: ATENOLOL 25 MG TAB PO SCH (08:57)
[2016-12-24] MEDS: PRAVASTATIN SODIUM 10 MG TAB PO SCH (08:57)
[2016-12-24] MEDS: AZITHROMYCIN IV 500 MG in D5W 250 ML IV SCH (09:32)
--- NOTE | 2016-12-24 12:16 | PDCARPN ---
Cardiology Progress Note Chief Complaint: No cardiovascular complaints have been noted Assessment/Plan: Assessment: 12-24-16 Patient doing well today. There is some degree of chest tightness that continues to be noted. No cardiovascular events overnight. Ongoing antibiotic therapy. Cardiac biomarkers had trended down with yesterday's reassessment, as well as with the BNP levels. Shortness of breath continues to be a complaint, but does not appear to be worse than normal at present. A call was placed to the patient's daughter to rediscuss the patient this morning. 12-23-16 Patient to good sleep overnight. Ongoing downward trend of the troponins has been noted. Further decrease in the BNP has also been noted. No complaints of chest pains or pressure. No PND or orthopnea. Normalization of the potassium has also been noted. Chief complaint continues to be shortness of breath with semi productive cough. I spoke with both the son and the daughter of the patient last night. Plans as of last night were not to pursue angiography, and to allow resolution of the suspected community acquired pneumonia. 12-22-16 No events overnight, but renal function did reveal some signs of improvement. Ongoing hyperkalemia has been noted, and given this finding, the patient was given Kayexalate today. Shortness of breath continues to be noted. Troponins peaked at 0.23 and have dropped. Mild chest discomfort continues to be noted. Echocardiogram without jessica progressive features noted (in comparison to prior) . 12-21-16 Patient is a 76 y/o male with history of CAD s/p POBA (1994) to the RCA, HLP, HTN, and "interstitial lung disease", who presented to [facility] ER with complaints of shortness of breath and chest tightness. According to the patient, he was doing well three days prior. Symptoms began somewhat acutely, about two days ago. Patient with recent travel from [place] (about one week ago). Chest pains were noted, and localize to the substernal region. No jessica radiation of the discomfort into the shoulder, neck, or jaw has been noted. Emesis was reported today (per ER notes). No PND or orthopnea have been noted. No lower extremity swelling. No fevers or chills have been noted, but the patient does have a slightly productive cough. Compliance with medical therapy has been good. Patient's daughter is a rag boiler at [employer], and I spoke with her after seeing the patient. Given the travel history and the shortness of breath and a D-dimer of 8.83, the patient had a CT scan to rule out pulmonary emboli. No obvious PE was noted, but extensive lung pathology noted ( infiltrate with scarring and fibrosis). Saturations initially noted were 69% on room air. A non rebreather was started, and shortness of breath improved. ECG with new T wave inversions to the lateral leads (this was not noted on prior ECG from fall). Troponin was elevated to 0.23 with creatinine of 1.6 (pre CT of chest). BNP was also noted to be elevated to 11,600. At present, the patient was comfortable and without complaints of chest pain or pressure Plan: (1) Completion of antibiotic therapy (2) Would arrange for outpatient MPI testing (3) Maintain therapy on statins given past history of HLP and CAD with POBA (4) ASA therapy should continue (5) Likely outpatient follow up with pulmonary for further following of the known ILD Subjective: No voiced cardiovascular complaints Reviewed/Discussed With: family, hospitalist, multidisciplinary team Objective: Vital Signs (8 Hrs) Temp Pulse Resp BP Pulse Ox 12/24/16 11:56 78 20 98 12/24/16 07:29 36.4 C 88 21 H 124/75 H 94 12/24/16 07:13 96 12/24/16 05:58 76 26 H 96 12/24/16 05:39 36.6 C 89 20 102/64 97 Intake/Output (24 Hrs) 12/23/16 12/24/16 12/25/16 05:59 05:59 05:59 Intake Total 2850 1455 305 Output Total 675 Balance 2175 1455 305 Intake: Oral (ml) 795 1150 IV Intake (ml) 250 IV Infused (ml) 1805 305 305 Azithromycin IV 500 mg In 255 255 255 D5w 250 ml @ 255 mls/hr IV DAILY RAUDEL Rx#: [id number] Ns 1,000 ml @ 125 mls/hr 1500 IV CONT RAUDEL Rx#: [id number] cefTRIAXone 1 GM/DEXTROSE 50 50 50 50 ml @ 100 mls/hr IV DAILY RAUDEL Rx#:[id number] Output: Urine (ml) 675 Bedside Commode 675 Other: Weight 71.4 kg Output Comment Bedside Commode post kaexylate this am Number of Voids Bedside Commode 1 1 Toilet 1 1 Number of Stools Bedside Commode 1 1 Result Diagrams: 12/23/16 03:50 12/23/16 03:50 Cardiac Labs: Cardiac Lab Results (72 Hrs) 12/22/16 12/21/16 03:20 22:14 Troponin I 0.197 H 0.292 H Telemetry: normal sinus rhythm - Physical Exam Constitutional: WDWN, no apparent distress Eyes: PERRL, EOMI Ears, Nose, Mouth, Throat: moist mucous membranes Cardiovascular: regular rate and rhythm, systolic murmur, No jugular vein distention Peripheral Pulses: 2+: dorsalis-pedis (R), dorsalis-pedis (L) Respiratory: reduced air movement, expiratory wheeze, inspiratory crackles Gastrointestinal: normoactive bowel sounds Skin: no rashes, no edema Musculoskeletal: no muscular tenderness Neurologic: AAOx3, CN II-XII grossly intact Psychiatric: cooperative, interactive, following commands ICD10 Worksheet Patient Problems: Problems Problem Status Onset Acute coronary syndrome Acute Congestive heart failure Acute Chest pain Acute
[2016-12-24] MEDS ORDERED: FUROSEMIDE 40 MG/4 ML VIAL IVP ONE (14:42)
--- NOTE | 2016-12-24 14:45 | HOSPPROG ---
Hospitalist Progress Note Assessment/Plan: 76 yo M with PMH of CAD, HTN and recent dx of ILD presenting with acute hypoxic respiratory failure # acute hypoxic respiratory failure: presenting at 64% on RA initially and currently maintaining o2 sats in low to mid 90s on low flow o2 but significant drops with even minor exertion. Related to pna and slow to improve with underlying ILD as well as likely component of acute on chronic chf and pulmonary edema. Continue abx, starting IV lasix, reviewed care plan with Dr. 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 # ILD: as above, new dx from October, as above, pulmonary following # CAP: suspect component of pna contributing to problem 1, continued ctx/azith, sputum and blood cx with ngtd # elevated trop: without chest pain and echo essentially unchanged, cardiology following without plans for cath at this time # hasmukh: pre renal, improved, monitoring on lasix # acute on chronic systolic heart failure: echo stable however pulmonary edema noted on imaging and suspect some acute failure contributing. Starting lasix. # CAD: prior stents, cards following as above, difficult to assess for chest pain currently. Med mgmt for now, likely cath in near future # dispo: IP status, will need > 48 hours stay for eval/mgmt of above given high risk presenting issues Care plan reviewed with pulmonary and patients son present at bedside. Subjective: no significant overnight events, patient is a bit stronger today, got up and walked a bit, still very sob with exertion Objective: Vital Signs Temp Pulse Resp BP Pulse Ox 36.9 C 86 20 137/80 H 93 12/24/16 12:32 12/24/16 12:32 12/24/16 12:32 12/24/16 12:32 12/24/16 12:32 Microbiology 12/21/16 21:35 - Final Sputum, Expectorated Laboratory Results 12/23/16 03:50 12/23/16 03:50 12/23/16 12/24/16 12/25/16 05:59 05:59 05:59 Intake Total 2850 1455 305 Output Total 675 Balance 2175 1455 305 PT 16.5 SEC (12.0-15.0) H 12/21/16 14:19 INR 1.33 (0.83-1.16) H 12/21/16 14:19 awake alert, chronically ill appearing anicteric op clear rrr distant no mrg dec bs throughout dry cough increased wob soft nt nd no cce warm dry well perfused oriented appropriate - Time Spent With Patient Time Spent with Patient: greater than 35 minutes Time Spent with Patient: Greater than 35 minutes spent on this patients care, greater than 50% of time spent counseling, educating, and coordinating care regarding the above mentioned plan. ICD10 Worksheet Patient Problems: Problems Problem Status Onset Acute coronary syndrome Acute Congestive heart failure Acute Chest pain Acute
[2016-12-24] MEDS: FUROSEMIDE 20 MG/2 ML VIAL IVP SCH (15:12)
--- NOTE | 2016-12-24 16:43 | PDINTPN ---
Open Die Inspector Progress Note Assessment/Plan: Assessment/plan: 76 M with known ILD admitted with fairly sudden onset respiratory distress and hypoxemia with increasing infiltrates on CT scan and mild lekocytosis. He had just returned [place] and said he felt fine until 1-2 days prior to admission. He has been followed by Dr. Mar at the ILD clinic who saw him in 03/2016 and reported an as-yet unclassifiable ILD since his CT did not have features consistent with classic IPF/UIP. Since his issues were mild at the time, she chose to observe with eventual PFTs (they were restrictive with low DLCO) and HRCT, but this acute episode arose. He has had chronic green sputum each morning with no real change, but has not required oxygen until now. His CTA ( which ruled out PE) showed new infiltrates superimposed on his chronic ILD and his BNP was initially >11,000. * Hypoxemia- I suspect his acute change is from PNA and/or fluid overload; though I cannot entirely rule out an ILD exacerbation, since his lung disease is atypical at baseline. However, I have advocated holding empiric steroids given his advanced age and concerns about side effects. I would continue to advocate this approach, letting time tell us if he will get better. If he does not, he may be a good candidate for prednisone. I spoke with his daughter- Marlene Hoang MD (a kitchen lead) who agreed with the plan and said Dr. Mar also agreed and had not only seen the CT but was aware of my plan. I left a message for Dr. Mar as well. He may be clos eto dc home soon on O2 and will followup with Dr. Mar * * Objective: Vital Signs Temp Pulse Resp BP Pulse Ox 36.7 C 85 23 H 132/78 H 97 12/24/16 16:10 12/24/16 16:10 12/24/16 16:10 12/24/16 16:10 12/24/16 16:10 Microbiology 12/21/16 21:35 - Final Sputum, Expectorated Laboratory Results 12/23/16 03:50 12/23/16 03:50 12/23/16 12/24/16 12/25/16 05:59 05:59 05:59 Intake Total 2850 1455 305 Output Total 675 500 Balance 2175 1455 -195 PT 16.5 SEC (12.0-15.0) H 12/21/16 14:19 INR 1.33 (0.83-1.16) H 12/21/16 14:19 Physical Exam - Physical Exam General Appearance: alert, no apparent distress, thin EENT: PERRL/EOMI Neck: supple Respiratory: rales, No wheezing Cardiac/Chest: regular rate, rhythm, No edema Abdomen: normal bowel sounds, non-tender, soft, No distended Skin: normal color, warm/dry Lymphatic: no adenopathy Extremities: non-tender, No pedal edema Neuro/Psych: alert, normal mood/affect, oriented x 3 ICD10 Worksheet Patient Problems: Problems Problem Status Onset Acute coronary syndrome Acute Congestive heart failure Acute Chest pain Acute
[2016-12-25] MEDS: IPRATROPIUM/ALBUTEROL 3 ML DEYVIAL IH SCH ×4 (03:23→21:21)
[2016-12-25] MEDS: ACETYLCYSTEINE 10% 30 ML VIAL IH SCH ×4 (03:24→21:22)
[2016-12-25 04:59] LABS: % IMMATURE GRANULYOCYTES 0.2 % (0.0-1.1); ABSOLUTE IMMATURE GRANULOCYTES 0.02 10^3/uL (0.00-0.10); ADD DIFF? NO; ADD MORPH? NO; ADD SCAN? NO; ATYPICAL LYMPHOCYTE FLAG 0 (0-99); FRAGMENT RBC FLAG 20 (0-99); HEMATOCRIT 37.8 % (40.0-51.0); HEMOGLOBIN 11.9 g/dL (13.7-17.5); LEFT SHIFT FLG 50 (0-99); LIPEMIA HEMOLYSIS FLAG 80 (0-99); MEAN CELL HEMOGLOBIN 27.3 pg (27.9-34.1); MEAN CELL HEMOGLOBIN CONCENTR. 31.5 g/dL (32.4-36.7); MEAN CELL VOLUME 86.7 fL (81.5-99.8); MEAN PLATELET VOLUME 13.7 fL (8.7-11.7); PLATELET CLUMPS FLAG 0 (0-99); PLATELET COUNT 225 10^3/uL (150-400); RED BLOOD CELL COUNT 4.36 10^6/uL (4.40-6.38); RED CELL DISTRIBUTION WIDTH 14.6 % (11.5-15.2)
[2016-12-25 05:23] LABS: ANION GAP 10 mEq/L (8-16); CALCIUM 8.9 mg/dL (8.5-10.4); CARBON DIOXIDE 29 mEq/l (22-31); CHLORIDE 104 mEq/L (97-110); CREATININE 1.1 mg/dL (0.7-1.3); GLOMERULAR FILTRATION RATE > 60; GLUCOSE 71 mg/dL (70-100); MAGNESIUM 1.8 mg/dL (1.6-2.3); SODIUM 143 mEq/L (134-144)
[2016-12-25] MEDS: DONEPEZIL HCL 5 MG TAB PO SCH (08:20)
[2016-12-25] MEDS: PRAVASTATIN SODIUM 10 MG TAB PO SCH (08:20)
[2016-12-25] MEDS: ALLOPURINOL 100 MG TAB PO SCH (08:20)
[2016-12-25] MEDS: guaiFENesin 600 MG TAB.ER PO SCH ×2 (08:20→20:38)
[2016-12-25] MEDS: ATENOLOL 25 MG TAB PO SCH (08:20)
[2016-12-25] MEDS: AZITHROMYCIN IV 500 MG in D5W 250 ML IV SCH (08:25)
[2016-12-25] MEDS: FUROSEMIDE 20 MG/2 ML VIAL IVP SCH (10:13)
--- NOTE | 2016-12-25 12:24 | HOSPPROG ---
Hospitalist Progress Note Assessment/Plan: Assessment/Plan: 76 yo M new to my care today with PMH of CAD, HTN and recent dx of ILD presenting with acute hypoxic respiratory failure # acute hypoxic respiratory failure: presenting at 64% on RA initially and currently maintaining o2 sats in low to mid 90s on 6L o2 but significant drops with even minor exertion. Related to pna and slow to improve with underlying ILD as well as likely component of acute on chronic chf and pulmonary edema. -Continue abx -Will DC IV lasix (appears euvolemic) # ILD: as above, new dx from October, as above, pulmonary following # CAP with sputum growing S.Aureus -continue ctx/azith D#5 # elevated trop: without chest pain and echo essentially unchanged, cardiology following without plans for cath at this time # hasmukh: pre renal, improved, monitoring on lasix # acute on chronic systolic heart failure (improving) -monitor off of lasix # CAD: prior stents, cards following as above, difficult to assess for chest pain currently. Med mgmt for now, likely cath in near future # dispo: IP status, will need > 48 hours stay for eval/mgmt of above given high risk presenting issues Care plan reviewed with patient son present at bedside. Subjective: still with significant shortness of breath and hypoxemia with exertion. no chest pain. lasix if causing him to urinate frequently which in turn is causing desats Objective: Vital Signs Temp Pulse Resp BP Pulse Ox 36.6 C 80 12 119/78 92 12/25/16 07:35 12/25/16 07:35 12/25/16 07:35 12/25/16 07:35 12/25/16 07:35 Microbiology 12/21/16 21:35 - Final Sputum, Expectorated Laboratory Results 12/25/16 03:57 12/25/16 03:57 12/24/16 12/25/16 12/26/16 05:59 05:59 05:59 Intake Total 1455 705 305 Output Total 2825 250 Balance 1455 -2120 55 PT 16.5 SEC (12.0-15.0) H 12/21/16 14:19 INR 1.33 (0.83-1.16) H 12/21/16 14:19 - Physical Exam Constitutional: no apparent distress, chronically ill appearing Eyes: PERRL, anicteric sclera, EOMI Ears, Nose, Mouth, Throat: moist mucous membranes, hearing normal, ears appear normal, no oral mucosal ulcers Cardiovascular: regular rate and rhythym, no murmur, rub, or gallop Respiratory: no respiratory distress, reduced air movement, other (fine crackles bilat), No dullness to percussion Gastrointestinal: normoactive bowel sounds, soft, non-tender abdomen, no palpable masses, No guarding, No rebound Neurologic: AAOx3 ICD10 Worksheet Patient Problems: Problems Problem Status Onset Chest pain Acute Acute coronary syndrome Acute Congestive heart failure Acute
[2016-12-25] MEDS: predniSONE 10 MG TAB PO SCH (15:58)
--- NOTE | 2016-12-25 17:05 | PDINTPN ---
Letter Of Credit Clerk Progress Note Assessment/Plan: Assessment/plan: 76 M with known ILD admitted with fairly sudden onset respiratory distress and hypoxemia with increasing infiltrates on CT scan and mild lekocytosis. He had just returned [place] and said he felt fine until 1-2 days prior to admission. He has been followed by Dr. Mar at the ILD clinic who saw him in 03/2016 and reported an as-yet unclassifiable ILD since his CT did not have features consistent with classic IPF/UIP. Since his issues were mild at the time, she chose to observe with eventual PFTs (they were restrictive with low DLCO) and HRCT, but this acute episode arose. He has had chronic green sputum each morning with no real change, but has not required oxygen until now. His CTA ( which ruled out PE) showed new infiltrates superimposed on his chronic ILD and his BNP was initially >11,000. * Hypoxemia- I suspect his acute change is from PNA and/or fluid overload; though his increasing O2 requirement despite diuresis and several days of abx make this theory less likely. He may have hypersensitivity pneumonitis, which was exacerbated by his return from [place]. At this point I think empiric steroids would be indicated, and was abole to contact his outpatient legal billing analyst who agreed. He will continue a course of antibiotics, but further diuresis may not be helpful. He cannot be discharged until his O2 needs are at least < 5-6 lpm. * 12/25/16 17:02 Objective: Vital Signs Temp Pulse Resp BP Pulse Ox 37.4 C 86 30 H 127/80 H 95 12/25/16 15:52 12/25/16 15:52 12/25/16 15:52 12/25/16 15:52 12/25/16 15:52 Microbiology 12/21/16 21:35 - Final Sputum, Expectorated Laboratory Results 12/25/16 03:57 12/25/16 03:57 12/24/16 12/25/16 12/26/16 05:59 05:59 05:59 Intake Total 1455 705 305 Output Total 2825 250 Balance 1455 -2120 55 PT 16.5 SEC (12.0-15.0) H 12/21/16 14:19 INR 1.33 (0.83-1.16) H 12/21/16 14:19 Physical Exam - Physical Exam General Appearance: alert, no apparent distress, thin EENT: PERRL/EOMI Neck: supple Respiratory: rales, rhonchi, No respiratory distress Cardiac/Chest: regular rate, rhythm, No edema Abdomen: non-tender, soft, No distended Skin: normal color, warm/dry Lymphatic: no adenopathy Extremities: No pedal edema Neuro/Psych: alert, normal mood/affect, oriented x 3 ICD10 Worksheet Patient Problems: Problems Problem Status Onset Acute coronary syndrome Acute Congestive heart failure Acute Chest pain Acute
[2016-12-26 05:59] LABS: ANION GAP 9 mEq/L (8-16); CALCIUM 8.9 mg/dL (8.5-10.4); CARBON DIOXIDE 29 mEq/l (22-31); CHLORIDE 101 mEq/L (97-110); CREATININE 1.2 mg/dL (0.7-1.3); GLOMERULAR FILTRATION RATE 59; GLUCOSE 151 mg/dL (70-100); SODIUM 139 mEq/L (134-144)
[2016-12-26] MEDS: ACETYLCYSTEINE 10% 30 ML VIAL IH SCH ×3 (06:15→16:49)
[2016-12-26] MEDS: IPRATROPIUM/ALBUTEROL 3 ML DEYVIAL IH SCH ×4 (06:15→22:18)
[2016-12-26] MEDS: predniSONE 10 MG TAB PO SCH (09:21)
[2016-12-26] MEDS: PRAVASTATIN SODIUM 10 MG TAB PO SCH (09:22)
[2016-12-26] MEDS: DONEPEZIL HCL 5 MG TAB PO SCH (09:22)
[2016-12-26] MEDS: guaiFENesin 600 MG TAB.ER PO SCH ×2 (09:22→21:47)
[2016-12-26] MEDS: ALLOPURINOL 100 MG TAB PO SCH (09:22)
[2016-12-26] MEDS: ATENOLOL 25 MG TAB PO SCH (09:22)
[2016-12-26] MEDS: AZITHROMYCIN IV 500 MG in D5W 250 ML IV SCH (09:23)
--- NOTE | 2016-12-26 13:11 | HOSPPROG ---
Hospitalist Progress Note Assessment/Plan: 76 yo M with PMH of CAD, HTN and recent dx of ILD presenting with acute hypoxic respiratory failure # acute hypoxic respiratory failure: presenting at 64% on RA initially and currently maintaining o2 sats in low to mid 90s on low flow o2 but significant drops with even minor exertion to the mid 70s. Multifactorial with underlying ILD of uncertain etiology as well as likely pna and volume overload--several days of abx/diuresis with only minimal improvement however query if this is more related to his underlying ILD as next. Still not ready for dc given he is still on 10L of o2. # ILD: of uncertain etiology, has been seen by pulm at [facility], does not have features typical for UIP by imaging and has not yet had biopsy. Started on prednisone given lack of improvement with abx/diuresis. Appreciate pulmonary input. # CAP: suspect component of pna contributing to problem 1, continued ctx/azith, sputum and blood cx with ngtd # elevated trop: without chest pain and echo essentially unchanged, cardiology plans to f/u with patient after dc # hasmukh: pre renal, improved, BUN increased on lasix and holding off on further diuresis given lack of significant improvement w/diuresis # acute on chronic systolic heart failure: echo stable however pulmonary edema noted on imaging and suspect some acute failure contributing. Appears euvolemic currently and monitoring off of lasix # CAD: prior stents, cards following as above, difficult to assess for chest pain currently. Med mgmt for now, likely cath or stress test as an outpatient # dispo: IP status, will need > 48 hours stay for eval/mgmt of above given high risk presenting issues Care plan reviewed with patient son Subjective: no significant overnight events, patient still having significant desaturations with even minimal exertion Objective: Vital Signs Temp Pulse Resp BP Pulse Ox 36.7 C 93 20 106/69 88 L 12/26/16 12:40 12/26/16 12:40 12/26/16 12:40 12/26/16 12:40 12/26/16 12:40 Microbiology 12/21/16 21:35 - Final Sputum, Expectorated Laboratory Results 12/25/16 03:57 12/26/16 03:49 12/25/16 12/26/16 12/27/16 05:59 05:59 05:59 Intake Total 705 905 Output Total 2825 250 Balance -2120 655 PT 16.5 SEC (12.0-15.0) H 12/21/16 14:19 INR 1.33 (0.83-1.16) H 12/21/16 14:19 awake alert, chronically ill appearing anicteric op clear rrr distant no mrg dec bs throughout dry cough increased wob soft nt nd no cce warm dry well perfused oriented appropriate ICD10 Worksheet Patient Problems: Problems Problem Status Onset Acute coronary syndrome Acute Congestive heart failure Acute Chest pain Acute
--- NOTE | 2016-12-26 15:10 | PDINTPN ---
Divinity Teacher Progress Note Assessment/Plan: Assessment/plan: 76 M with known ILD admitted with fairly sudden onset respiratory distress and hypoxemia with increasing infiltrates on CT scan and mild lekocytosis. He had just returned [place] and said he felt fine until 1-2 days prior to admission. He has been followed by Dr. Mar at the ILD clinic who saw him in 03/2016 and reported an as-yet unclassifiable ILD since his CT did not have features consistent with classic IPF/UIP. Since his issues were mild at the time, she chose to observe with eventual PFTs (they were restrictive with low DLCO) and HRCT, but this acute episode arose. He has had chronic green sputum each morning with no real change, but has not required oxygen until now. His CTA ( which ruled out PE) showed new infiltrates superimposed on his chronic ILD and his BNP was initially >11,000. * Hypoxemia- I suspect his acute change is from PNA and/or fluid overload; though his increasing O2 requirement despite diuresis and several days of abx make this theory less likely. He may have hypersensitivity pneumonitis, which was exacerbated by his return from [place]. He will continue a course of antibiotics, but further diuresis may not be helpful. He cannot be discharged until his O2 needs are at least < 5-6 lpm. Started prednisone last pm at 30 mg/ day * Objective: Vital Signs Temp Pulse Resp BP Pulse Ox 36.7 C 93 20 106/69 88 L 12/26/16 12:40 12/26/16 12:40 12/26/16 12:40 12/26/16 12:40 12/26/16 12:40 Microbiology 12/21/16 21:35 - Final Sputum, Expectorated Laboratory Results 12/25/16 03:57 12/26/16 03:49 12/25/16 12/26/16 12/27/16 05:59 05:59 05:59 Intake Total 705 905 Output Total 2825 250 Balance -2120 655 PT 16.5 SEC (12.0-15.0) H 12/21/16 14:19 INR 1.33 (0.83-1.16) H 12/21/16 14:19 Physical Exam - Physical Exam General Appearance: alert, no apparent distress, thin EENT: PERRL/EOMI Neck: supple Respiratory: rales (especially at right base), No respiratory distress, No accessory muscle use, No stridor, No wheezing Cardiac/Chest: regular rate, rhythm, No edema Abdomen: normal bowel sounds, non-tender, soft, No distended Skin: normal color, warm/dry Lymphatic: no adenopathy Extremities: non-tender, No pedal edema Neuro/Psych: alert, normal mood/affect, oriented x 3 ICD10 Worksheet Patient Problems: Problems Problem Status Onset Acute coronary syndrome Acute Congestive heart failure Acute Chest pain Acute
[2016-12-26] MEDS: ACETAMINOPHEN 325 MG TAB PO PRN (22:03)
[2016-12-27] MEDS: ACETYLCYSTEINE 10% 30 ML VIAL IH SCH ×5 (01:46→22:16)
[2016-12-27 08:13] LABS: ANION GAP 6 mEq/L (8-16); CALCIUM 8.9 mg/dL (8.5-10.4); CARBON DIOXIDE 30 mEq/l (22-31); CHLORIDE 105 mEq/L (97-110); CREATININE 1.3 mg/dL (0.7-1.3); GLOMERULAR FILTRATION RATE 53; GLUCOSE 139 mg/dL (70-100); POTASSIUM 5.1 mEq/L (3.5-5.2); SODIUM 141 mEq/L (134-144)
[2016-12-27] MEDS: IPRATROPIUM/ALBUTEROL 3 ML DEYVIAL IH SCH ×4 (08:15→22:14)
[2016-12-27] MEDS: AZITHROMYCIN IV 500 MG in D5W 250 ML IV SCH (09:46)
[2016-12-27] MEDS: DONEPEZIL HCL 5 MG TAB PO SCH (09:47)
[2016-12-27] MEDS: guaiFENesin 600 MG TAB.ER PO SCH ×2 (09:47→19:46)
[2016-12-27] MEDS: predniSONE 10 MG TAB PO SCH (09:47)
[2016-12-27] MEDS: PRAVASTATIN SODIUM 10 MG TAB PO SCH (09:47)
[2016-12-27] MEDS: ATENOLOL 25 MG TAB PO SCH (09:47)
[2016-12-27] MEDS: ALLOPURINOL 100 MG TAB PO SCH (09:47)
--- NOTE | 2016-12-27 14:42 | PDINTPN ---
Appraisal Specialist Progress Note Assessment/Plan: Assessment/plan: 76 M with known ILD admitted with fairly sudden onset respiratory distress and hypoxemia with increasing infiltrates on CT scan and mild lekocytosis. He had just returned [place] and said he felt fine until 1-2 days prior to admission. He has been followed by Dr. Mar at the ILD clinic who saw him in 03/2016 and reported an as-yet unclassifiable ILD since his CT did not have features consistent with classic IPF/UIP. Since his issues were mild at the time, she chose to observe with eventual PFTs (they were restrictive with low DLCO) and HRCT, but this acute episode arose. He has had chronic green sputum each morning with no real change, but has not required oxygen until now. His CTA ( which ruled out PE) showed new infiltrates superimposed on his chronic ILD and his BNP was initially >11,000. * Hypoxemia- I suspect his acute change is from PNA and/or fluid overload; though his increasing O2 requirement despite diuresis and several days of abx make this theory less likely. He may have hypersensitivity pneumonitis, which was exacerbated by his return from [place]. He will continue a course of antibiotics, but further diuresis may not be helpful. He remains very stable and is tolerating 30 mg day of prednisone. He is stable for dc as long as we can arrange for oxygen to keep his sat >90% at rest and with ambulation. His followup will be with Dr. Mar at ILD clinic 12/27/16 14:40 Objective: Vital Signs Temp Pulse Resp BP Pulse Ox 36.3 C 78 16 127/80 H 90 L 12/27/16 08:00 12/27/16 10:59 12/27/16 10:59 12/27/16 08:00 12/27/16 11:42 Microbiology 12/21/16 21:35 - Final Sputum, Expectorated 12/21/16 Unknown Blood Culture - Final Blood Laboratory Results 12/25/16 03:57 12/27/16 03:27 12/26/16 12/27/16 12/28/16 05:59 05:59 05:59 Intake Total 905 300 Output Total 250 Balance 655 300 PT 16.5 SEC (12.0-15.0) H 12/21/16 14:19 INR 1.33 (0.83-1.16) H 12/21/16 14:19 Physical Exam - Physical Exam General Appearance: WD/WN, alert, thin EENT: PERRL/EOMI Neck: supple Respiratory: rales (especially RLL), No respiratory distress Cardiac/Chest: regular rate, rhythm, No edema Abdomen: non-tender, soft, No distended Skin: normal color, warm/dry, No cyanosis Lymphatic: no adenopathy Extremities: non-tender, No pedal edema Neuro/Psych: alert, normal mood/affect, oriented x 3 ICD10 Worksheet Patient Problems: Problems Problem Status Onset Acute coronary syndrome Acute Congestive heart failure Acute Chest pain Acute
--- NOTE | 2016-12-27 16:37 | HOSPPROG ---
Hospitalist Progress Note Assessment/Plan: 76 yo M with PMH of CAD, HTN and recent dx of ILD presenting with acute hypoxic respiratory failure # acute hypoxic respiratory failure: presenting at 64% on RA initially and currently maintaining o2 sats in low to mid 90s on 5-6L, however with even minor exertion such as ambulation, desats still to the 70s. Will dc home once able to maintain o2 in the 80s on 5-6L even with ambulation. Multifactorial with underlying ILD of uncertain etiology as well as likely pna and volume overload--several days of abx/diuresis with only minimal improvement however query if this is more related to his underlying ILD as next. # ILD: of uncertain etiology, has been seen by pulm at [facility], does not have features typical for UIP by imaging and has not yet had biopsy. Started on prednisone given lack of improvement with abx/diuresis. Appreciate pulmonary input. Plan to dc on 30mg prednisone and f/u with primary architecture professor. # CAP: suspect component of pna contributing to problem 1, continued ctx/azith, sputum and blood cx with ngtd # elevated trop: without chest pain and echo essentially unchanged, cardiology plans to f/u with patient after dc # hasmukh: pre renal, improved, BUN increased on lasix and holding off on further diuresis given lack of significant improvement w/diuresis # acute on chronic systolic heart failure: echo stable however pulmonary edema noted on imaging and suspect some acute failure contributing. Appears euvolemic currently and monitoring off of lasix # CAD: prior stents, cards following as above, difficult to assess for chest pain currently. Med mgmt for now, likely cath or stress test as an outpatient # dispo: IP status, will need > 48 hours stay for eval/mgmt of above given high risk presenting issues Care plan reviewed with pulmonary and cm Subjective: patient feeling much better, he is eager to dc home but still having desats to the 70s when ambulating even on 6L, no other complaints Objective: Vital Signs Temp Pulse Resp BP Pulse Ox 36.3 C 78 16 127/80 H 90 L 12/27/16 08:00 12/27/16 10:59 12/27/16 10:59 12/27/16 08:00 12/27/16 11:42 Microbiology 12/21/16 21:35 - Final Sputum, Expectorated 12/21/16 Unknown Blood Culture - Final Blood Laboratory Results 12/25/16 03:57 12/27/16 03:27 12/26/16 12/27/16 12/28/16 05:59 05:59 05:59 Intake Total 905 300 Output Total 250 Balance 655 300 PT 16.5 SEC (12.0-15.0) H 12/21/16 14:19 INR 1.33 (0.83-1.16) H 12/21/16 14:19 awake alert, chronically ill appearing anicteric op clear rrr distant no mrg dec bs throughout dry cough increased wob soft nt nd no cce warm dry well perfused oriented appropriate - Time Spent With Patient Time Spent with Patient: greater than 35 minutes Time Spent with Patient: Greater than 35 minutes spent on this patients care, greater than 50% of time spent counseling, educating, and coordinating care regarding the above mentioned plan. ICD10 Worksheet Patient Problems: Problems Problem Status Onset Acute coronary syndrome Acute Congestive heart failure Acute Chest pain Acute
[2016-12-28 05:14] LABS: ANION GAP 9 mEq/L (8-16); CALCIUM 8.9 mg/dL (8.5-10.4); CARBON DIOXIDE 29 mEq/l (22-31); CHLORIDE 102 mEq/L (97-110); CREATININE 1.2 mg/dL (0.7-1.3); GLOMERULAR FILTRATION RATE 59; GLUCOSE 149 mg/dL (70-100); POTASSIUM 5.1 mEq/L (3.5-5.2); SODIUM 140 mEq/L (134-144)
[2016-12-28] MEDS: IPRATROPIUM/ALBUTEROL 3 ML DEYVIAL IH SCH ×2 (06:17→10:06)
[2016-12-28] MEDS: ACETYLCYSTEINE 10% 30 ML VIAL IH SCH ×2 (06:18→10:07)
[2016-12-28] MEDS: AZITHROMYCIN IV 500 MG in D5W 250 ML IV SCH (09:25)
[2016-12-28] MEDS ORDERED: PANTOPRAZOLE SODIUM 40 MG TAB PO SCH (09:45)
[2016-12-28] MEDS: predniSONE 10 MG TAB PO SCH (10:40)
[2016-12-28] MEDS: DONEPEZIL HCL 5 MG TAB PO SCH (10:41)
[2016-12-28] MEDS: ALLOPURINOL 100 MG TAB PO SCH (10:41)
[2016-12-28] MEDS: guaiFENesin 600 MG TAB.ER PO SCH (10:41)
[2016-12-28] MEDS: PRAVASTATIN SODIUM 10 MG TAB PO SCH (10:41)
[2016-12-28] MEDS: ATENOLOL 25 MG TAB PO SCH (10:52)
[2016-12-28 15:13] VITALS: BP 141/81; PULSE 91; RESP 22; TEMP 97.6; O2SAT 90
--- NOTE | 2016-12-28 17:55 | PDDCSUM ---
Discharge Summary Discharge Summary: Dates of service 12/21-12/28/16 Discharge dx: # acute hypoxic respiratory failure # ILD # pna # acute on chronic systolic heart failure # cad Consultations: pulmonary, cardiology Procedures performed: chest cta/echo Hospital course by problem: # acute hypoxic respiratory failure: presenting at 64% on RA initially and currently maintaining o2 sats in low to mid 90s on 5-6L, however with even minor exertion such as ambulation, desats still to the 70s. ABle to maintain o2 sats in the 80s with minimal exertion on 8L, but still desats to 70s if this is titrated down. Multifactorial with underlying ILD of uncertain etiology as well as likely pna and volume overload as below # ILD: of uncertain etiology, has been seen by pulm at [facility], does not have features typical for UIP by imaging and has not yet had biopsy. Started on prednisone given lack of improvement with abx/diuresis. Appreciate pulmonary input. Plan to dc on 30mg prednisone and f/u with primary notching press operator. Hypersensitivity pneumonitis a consideration and patient does currently live with a bird, but did not have birds in the past and this has been present for some time. Originally from [place] and has recently been there, so query if it could have been brought on by that. # CAP: suspect component of pna contributing to problem 1, continued ctx/azith, sputum and blood cx with ngtd # elevated trop: without chest pain and echo essentially unchanged, cardiology plans to f/u with patient after dc # hasmukh: pre renal, improved, BUN increased on lasix and holding off on further diuresis given lack of significant improvement w/diuresis # acute on chronic systolic heart failure: echo stable however pulmonary edema noted on imaging and suspect some acute failure contributing. Appears euvolemic currently and stable off of lasix. F/u in the coming weeks and can determine if lasix indicated # CAD: prior stents, cards following as above, difficult to assess for chest pain currently. Med mgmt for now, likely cath or stress test as an outpatient DC home f/u with pulmonary/cardiology/pcp Items for f/u: stress test, consideration for lung bx > 35 minutes spent in dc more than half in coordination of care and prolonged discussion with patient and his son present at bedside.
== END 2016-12-28 18:55 | disposition home or self-care (01) | DRG 189 ==
LOC: F2W 17:32
PROVIDERS: ADMIT Hospitalist; ATTEND Internal Medicine
DX: J96.01 Acute respiratory failure with hypoxia (principal); J84.9 Interstitial pulmonary disease, unspecified; I50.23 Acute on chronic systolic (congestive) heart failure; R07.9 Chest pain, unspecified; N17.9 Acute kidney failure, unspecified; I25.10 Atherosclerotic heart disease of native coronary artery without angina pectoris; I25.2 Old myocardial infarction; I10 Essential (primary) hypertension; E78.5 Hyperlipidemia, unspecified; M10.9 Gout, unspecified; Z95.5 Presence of coronary angioplasty implant and graft
CPT/HCPCS: 96374; 97116-GP; 97161-GP; G0009; G8978-GP-CK; G8979-GP-CI; J0456; J0696; J1940; Q9967